=== PATIENT | female | born 1985 | race Two or more races ===

== ENCOUNTER 2022-08-10 11:46 | Emergency (ER) | payer MEDICAID ==
[~2022-08-10] VITALS: Ht 154.9 cm; Wt 73.0 kg
[2022-08-10 11:55] VITALS: BP 120/74
[2022-08-10] MEDS ORDERED: ONDANSETRON 4MG ODT PO ONE (13:45)
[2022-08-10 15:07] LABS: BASOPHILS % 0.3 % (0.0-2.0); EOSINOPHILS % 1.3 % (0.0-5.0); HEMATOCRIT. 38.9 % (36.0-48.0); HEMOGLOBIN. 12.9 g/dL (12.0-16.0); LYMPHOCYTES % 30.1 % (20.0-50.0); MEAN CORPUSCULAR VOLUME 90.1 fL (81.0-99.0); MEAN PLATELET VOLUME 8.6 fl (7.4-10.4); NEUTROPHILS % 63.3 % (40.0-76.0); PLATELET 333 x1000/uL (130-400); RED BLOOD CELL COUNT 4.32 mill/uL (4.2-5.4); RED CELL DISTRIBUTION WIDTH 13.7 % (11.6-14.6)
[2022-08-10 15:33] LABS: CHLORIDE 102 mEq/L (98-107)
[2022-08-10 15:58] LABS: B-HCG QUANTITATIVE 2239 mIU/mL (<3)
== END 2022-08-10 17:15 | disposition home or self-care (01) ==
LOC: ER 14:25
DX: O20.0 Threatened abortion (principal); Z3A.01 Less than 8 weeks gestation of pregnancy; Z98.890 Other specified postprocedural states
CPT/HCPCS: 36415; 76801; 76817; 80053; 81025; 84702; 85025; 86850; 86900; 86901; 99284; Z7610

== ENCOUNTER 2022-08-17 12:39 | Day surgery (SDC) | payer MEDICAID ==
[~2022-08-17] VITALS: Ht 160 cm; Wt 75.0 kg
[2022-08-17 12:41] VITALS: BP 124/44
[2022-08-17 16:02] LABS: BASOPHILS % 0.4 % (0.0-2.0); EOSINOPHILS % 1.1 % (0.0-5.0); HEMATOCRIT. 37.2 % (36.0-48.0); HEMOGLOBIN. 12.5 g/dL (12.0-16.0); LYMPHOCYTES % 29.5 % (20.0-50.0); MEAN CORPUSCULAR HEMOGLOBIN 29.9 pg (28.0-32.0); MEAN CORPUSCULAR VOLUME 88.9 fL (81.0-99.0); MEAN PLATELET VOLUME 8.5 fl (7.4-10.4); MONOCYTES % 5.8 % (2.0-8.0); NEUTROPHILS % 63.2 % (40.0-76.0); PLATELET 302 x1000/uL (130-400); RED BLOOD CELL COUNT 4.18 mill/uL (4.2-5.4); RED CELL DISTRIBUTION WIDTH 13.7 % (11.6-14.6)
[2022-08-17] MEDS ORDERED: LACTATED RINGERS 1,000 ML IV SCH (16:15)
[2022-08-17 16:16] LABS: CHLORIDE 106 mEq/L (98-107)
[2022-08-17 16:27] LABS: B-HCG QUANTITATIVE 729 mIU/mL (<3)
[2022-08-17] MEDS ORDERED: LIDOCAINE HCL 1% 10 MG/ML 10ML VIAL ONE (17:47)
[2022-08-17] MEDS ORDERED: MIDAZOLAM HCL 2 MG/2 ML VIAL ONE ×2 (17:47→19:14)
[2022-08-17] MEDS ORDERED: ONDANSETRON HCL 4MG/2ML INJ ONE (17:47)
[2022-08-17] MEDS ORDERED: PROPOFOL 200MG/20ML VIAL IV ONE ×2 (17:47→19:16)
[2022-08-17] MEDS ORDERED: FENTANYL CITRATE/PF 50MCG/ML 2ML VIAL ONE (17:48)
[2022-08-17] MEDS ORDERED: DEXAMETHASONE 4MG/ML 1ML VIAL ONE (18:55)
[2022-08-17] MEDS ORDERED: ONDANSETRON HCL 4MG/2ML INJ IV PRN (19:45)
[2022-08-17] MEDS ORDERED: HYDROMORPHONE HCL/PF 2MG/ML CPJ IV PRN (19:45)
== END 2022-08-17 22:30 | disposition home or self-care (01) ==
LOC: ER 12:39 → 6EST 16:09 → UNDOADMIN 16:09 → EDBEDREQ 16:19 → OR 19:04 → ENRESERV 19:38 → OR 22:30 → MICUSO 08-18 04:08 → 6EST 08-18 04:08 → UNDODISIN 08-20 16:04
PROVIDERS: ATTEND Obstetrics & Gynecology
DX: O03.4 Incomplete spontaneous abortion without complication (principal); Z79.899 Other long term (current) drug therapy; Z98.890 Other specified postprocedural states; Z20.822 Contact with and (suspected) exposure to COVID-19
CPT/HCPCS: 36415; 59812; 76801; 76817; 80053; 84702; 85025; 87426; 88305; 99285; C9803; J1100; J2250; J2405; J2704; J3010; J3490